=== PATIENT | female | born 1960 | race Caucasian/White ===

== ENCOUNTER 2017-04-02 17:43 | Emergency (ER) | payer SELFPAY ==
[2017-04-02] MEDS ORDERED: Acetaminophen 500 MG TAB ONE (18:31)
[2017-04-02 19:08] LABS: ALT (SGPT) 25 U/L (8-55); AST (SGOT) 14 U/L (5-34); Alkaline Phosphatase 76 U/L (40-150); Anion Gap 15 mmol/L (10-20); BUN (Urea Nitrogen) 13 mg/dL (9.8-20.1); Bilirubin, Total 0.4 mg/dL (0.2-1.2); Calc. Creatinine Clearance 0 mL/min (70-130); Calcium 9.7 mg/dL (7.8-10.44); Carbon Dioxide 29 mmol/L (22-29); Chloride 97 mmol/L (98-107); Estimated GFR-MDRD 77; Globulin 3.7 g/dL (2.4-3.5); Glucose 222 mg/dL (70-105); Potassium 4.1 mmol/L (3.5-5.1); Protein, Total 7.7 g/dL (6.0-8.3); Sodium 137 mmol/L (136-145)
[2017-04-02 19:11] LABS: #Basophils 0.1 thou/uL (0.0-0.2); #Eosinphils 0.2 thou/uL (0.0-0.7); #Lymphocytes 3.1 thou/uL (1.20-3.40); #Monocytes 0.8 thou/uL (0.11-0.59); #Neutrophils 7.2 thou/uL (1.40-6.50); %Eosinophils 1.9 % (0.0-10.0); %Monocytes 6.6 % (0.0-10.0); %Neutrophils 63.5 % (42.0-75.0); Hemoglobin 12.7 g/dL (12.0-16.0); Mean Corpuscular HGB CONC 33.8 g/dL (32.0-36.0); Mean Corpuscular Hemoglobin 30.2 pg (27.0-31.0); Mean Corpuscular Volume 89.4 fl (81.0-99.0); Mean Platelet Volume 12.7 fL (7.4-10.4); PLT Morphology Comment Appears Adequate; Platelet Count 177 thou/uL (130-400); RBC Distribution Width 11.2 % (11.5-14.5); Red Blood Cell (RBC) Count 4.22 mill/uL (4.20-5.40); White Blood Cell (WBC) Count 11.4 thou/uL (4.8-10.8)
[2017-04-02] MEDS ORDERED: Ibuprofen 800 MG TAB ONE (19:57)
[2017-04-02] MEDS ORDERED: HYDROcodone/Acetaminophen 5/325 mg Tablet ONE (19:57)
[2017-04-02] MEDS ORDERED: Oseltamivir 75 MG CAP ONE (19:57)
[2017-04-02] MEDS ORDERED: Dexamethasone 4 MG TAB ONE (19:57)
--- NOTE | 2017-04-02 20:20 | RAD ---
TWO VIEWS CHEST 04/02/17 PROVIDED CLINICAL HISTORY: Fever. FINDINGS: Comparison 10/17/15. The cardiac and mediastinal silhouette is within normal limits. No focal consolidation, pleural fluid , or pneumothorax apparent. Degenerative changes are seen involving the thoracic spine. IMPRESSION: No evidence for an acute cardiopulmonary process. POS: [facility]
[2017-04-02] MEDS ORDERED: Azithromycin 250 MG TAB ONE (20:47)
== END 2017-04-02 20:57 | disposition home or self-care (01) ==
LOC: MADERS 17:43
DX: J40 Bronchitis, not specified as acute or chronic (principal); E11.9 Type 2 diabetes mellitus without complications; E78.5 Hyperlipidemia, unspecified; I10 Essential (primary) hypertension; F41.9 Anxiety disorder, unspecified; F32.9 Major depressive disorder, single episode, unspecified; F17.210 Nicotine dependence, cigarettes, uncomplicated; Z79.4 Long term (current) use of insulin; Z79.899 Other long term (current) drug therapy; Z79.82 Long term (current) use of aspirin
CPT/HCPCS: 71020; 80053; 83880; 85025; J8540

== ENCOUNTER 2017-11-16 12:28 | Emergency (ER) | payer SELFPAY ==
[2017-11-16 13:11] LABS: #Basophils 0.1 thou/uL (0.0-0.2); #Eosinphils 0.4 thou/uL (0.0-0.7); #Monocytes 0.8 thou/uL (0.11-0.59); #Neutrophils 6.8 thou/uL (1.40-6.50); %Basophils 1.2 % (0.0-1.0); %Eosinophils 3.5 % (0.0-10.0); %Monocytes 6.9 % (0.0-10.0); %Neutrophils 61.4 % (42.0-75.0); Mean Corpuscular HGB CONC 34.8 g/dL (32.0-36.0); Mean Corpuscular Hemoglobin 29.5 pg (27.0-31.0); Mean Corpuscular Volume 84.7 fL (78.0-98.0); Platelet Count 188 thou/uL (130-400); RBC Distribution Width 11.4 % (11.5-14.5); Red Blood Cell (RBC) Count 4.39 mill/uL (4.20-5.40); White Blood Cell (WBC) Count 11.1 thou/uL (4.8-10.8)
[2017-11-16 13:14] LABS: Manual Diff?? NO
[2017-11-16 13:22] LABS: ALT (SGPT) 18 U/L (8-55); AST (SGOT) 14 U/L (5-34); Albumin 4.2 g/dL (3.5-5.0); Alkaline Phosphatase 67 U/L (40-150); Anion Gap 17 mmol/L (10-20); BUN (Urea Nitrogen) 18 mg/dL (9.8-20.1); Bilirubin, Total 0.2 mg/dL (0.2-1.2); Calc. Creatinine Clearance 0 mL/min (70-130); Calcium 9.8 mg/dL (7.8-10.44); Carbon Dioxide 24 mmol/L (22-29); Chloride 105 mmol/L (98-107); Estimated GFR-MDRD 81; Globulin 3.3 g/dL (2.4-3.5); Glucose 127 mg/dL (70-105); Protein, Total 7.5 g/dL (6.0-8.3); Sodium 142 mmol/L (136-145)
[2017-11-16] MEDS ORDERED: Metoprolol Tartrate 50 MG TAB ONE (13:24)
[2017-11-16] MEDS ORDERED: metFORMIN 500 MG TAB ONE (13:32)
[2017-11-16] MEDS ORDERED: Lisinopril 10 MG TAB ONE (13:32)
--- NOTE | 2017-11-16 13:49 | RAD ---
RADIOGRAPH CHEST 1 VIEW: HISTORY: 57-year-old female with dyspnea. FINDINGS: There are no air space densities, pulmonary edema, pneumothorax, or cardiomegaly. The lateral costop hrenic angles are sharp. IMPRESSION: No acute cardiopulmonary findings. elis [] POS: [facility]
== END 2017-11-16 14:08 | disposition home or self-care (01) ==
LOC: MADERS 12:28
DX: R00.2 Palpitations (principal); Z76.0 Encounter for issue of repeat prescription; E11.9 Type 2 diabetes mellitus without complications; E78.5 Hyperlipidemia, unspecified; J45.909 Unspecified asthma, uncomplicated; I10 Essential (primary) hypertension; F41.9 Anxiety disorder, unspecified; F32.9 Major depressive disorder, single episode, unspecified; F17.210 Nicotine dependence, cigarettes, uncomplicated; Z79.4 Long term (current) use of insulin; Z79.82 Long term (current) use of aspirin; Z79.899 Other long term (current) drug therapy
CPT/HCPCS: 36416; 71045; 80053; 85025; 93005

== ENCOUNTER 2017-12-31 01:07 | Emergency (ER) | payer SELFPAY ==
[2017-12-31] MEDS ORDERED: Bupivacaine PF 0.5% 30 ML VIAL ONE (01:16)
[2017-12-31] MEDS ORDERED: Ondansetron ODT 4 MG TAB ONE (01:23)
[2017-12-31] MEDS ORDERED: HYDROcodone/Acetaminophen 10/325 mg Tablet ONE (01:36)
[2017-12-31] MEDS ORDERED: Amoxicillin/Potassium Clav 875 MG TAB ONE (01:47)
[2017-12-31] MEDS ORDERED: Sodium Chloride Irrig Solution 250 ML BOT ONE (08:09)
== END 2017-12-31 02:00 | disposition home or self-care (01) ==
LOC: MADERS 01:07
DX: S68.110A Complete traumatic metacarpophalangeal amputation of right index finger, initial encounter (principal); E11.9 Type 2 diabetes mellitus without complications; E78.5 Hyperlipidemia, unspecified; I10 Essential (primary) hypertension; F41.9 Anxiety disorder, unspecified; F32.9 Major depressive disorder, single episode, unspecified; F17.210 Nicotine dependence, cigarettes, uncomplicated; Z79.4 Long term (current) use of insulin; W54.0XXA Bitten by dog, initial encounter
CPT/HCPCS: 99283; Q0162; S0020

== ENCOUNTER 2018-01-26 02:26 | Emergency (ER) | payer SELFPAY ==
[2018-01-26] MEDS ORDERED: Bacitracin Zinc 1 Packet ONE (03:26)
[2018-01-26] MEDS ORDERED: HYDROcodone/Acetaminophen 5/325 mg Tablet ONE (03:29)
[2018-01-26] MEDS ORDERED: Acetaminophen 325 MG TAB ONE (03:29)
[2018-01-26] MEDS ORDERED: Ibuprofen 800 MG TAB ONE (03:29)
[2018-01-26] MEDS ORDERED: Cephalexin 500 MG CAP ONE (03:29)
== END 2018-01-26 03:42 | disposition home or self-care (01) ==
LOC: MADERS 02:26
DX: T21.21XA Burn of second degree of chest wall, initial encounter (principal); S83.92XA Sprain of unspecified site of left knee, initial encounter; X11.8XXA Contact with other hot tap-water, initial encounter; X50.1XXA Overexertion from prolonged static or awkward postures, initial encounter
CPT/HCPCS: 16020